=== PATIENT | female | born 1995 | race Caucasian/White ===

== ENCOUNTER 2022-02-16 21:56 | Observation (INO) | payer MEDICAID ==
[~2022-02-16] VITALS: Ht 152.4 cm; Wt 70.3 kg
== END 2022-02-16 23:30 | disposition home or self-care (01) ==
LOC: 8 EST LDRP 21:56
PROVIDERS: ADMIT Obstetrics & Gynecology; ATTEND Obstetrics & Gynecology
DX: O26.893 Other specified pregnancy related conditions, third trimester (principal); R10.9 Unspecified abdominal pain; O62.9 Abnormality of forces of labor, unspecified; O47.1 False labor at or after 37 completed weeks of gestation; Z3A.37 37 weeks gestation of pregnancy
CPT/HCPCS: 59025; G0378; 99281

== ENCOUNTER 2022-03-07 04:00 | Inpatient (IN) | payer MEDICAID ==
[~2022-03-07] VITALS: Ht 154.9 cm; Wt 68.9 kg
[2022-03-07] MEDS ORDERED: METHYLERGONOVINE MALEATE 0.2 MG/ML IM PRN ×2 (05:45→21:45)
[2022-03-07] MEDS ORDERED: CARBOPROST TROMETHAMINE 250 MCG/ML AMPUL IM PRN (05:45)
[2022-03-07] MEDS ORDERED: NALOXONE HCL 0.4 MG/ML 1ML VIAL IM PRN (05:45)
[2022-03-07] MEDS ORDERED: BUTORPHANOL TARTRATE 2 MG/ML VIAL IV PRN (05:45)
[2022-03-07] MEDS ORDERED: LIDOCAINE HCL 1% 20ML VIAL (Pyxis) INJ INFIL SCH (05:45)
[2022-03-07 06:17] LABS: CLARITY URINE CLOUDY (CLEAR); COLOR URINE YELLOW (YELLOW); KETONES URINE NEGATIVE (NEGATIVE); LEUKOCYTE ESTERASE URINE 2+ (NEGATIVE); NITRITE URINE NEGATIVE (NEGATIVE); OCCULT BLOOD URINE 3+ (NEGATIVE); PH URINE 6.5 (4.5-8.0); PROTEIN URINE TRACE (NEGATIVE); SPECIFIC GRAVITY URINE 1.013 (1.005-1.030)
[2022-03-07] MEDS: LACTATED RINGERS 1,000 ML IV SCH ×3 (06:18→11:35)
[2022-03-07 07:00] LABS: *AMPHETAMINES SCREEN URINE NEGATIVE (NEGATIVE); *BARBITURATES SCREEN URINE NEGATIVE (NEGATIVE); *BENZODIAZEPINES SCREEN URINE NEGATIVE (NEGATIVE); *COCAINE SCREEN URINE NEGATIVE (NEGATIVE); CANNABINOID URINE SCREEN NEGATIVE (NEGATIVE); METHADONE URINE SCREEN NEGATIVE (NEGATIVE); OPIATES URINE SCREEN NEGATIVE (NEGATIVE); PHENCYCLIDINE URINE SCREEN NEGATIVE (NEGATIVE)
[2022-03-07 07:09] LABS: BASOPHILS % 0.4 % (0.0-2.0); EOSINOPHILS % 0.5 % (0.0-5.0); HEMOGLOBIN. 12.7 g/dL (12.0-16.0); LYMPHOCYTES % 22.4 % (20.0-50.0); MEAN CORPUSCULAR HEMOGLOBIN 31.6 pg (28.0-32.0); MEAN CORPUSCULAR VOLUME 89.6 fL (81.0-99.0); MEAN PLATELET VOLUME 9.4 fl (7.4-10.4); MONOCYTES % 5.1 % (2.0-8.0); NEUTROPHILS % 71.6 % (40.0-76.0); PLATELET 205 x1000/uL (130-400); RED BLOOD CELL COUNT 4.02 mill/uL (4.2-5.4); RED CELL DISTRIBUTION WIDTH 13.3 % (11.6-14.6)
[2022-03-07 07:20] LABS: INR 0.9; PARTIAL THROMBOPLASTIN TIME 29.5 sec (23.4-31.0); PROTHROMBIN TIME 9.9 sec (9.6-11.0)
[2022-03-07 07:46] LABS: HEPATITIS B SURFACE ANTIGEN NEGATIVE
[2022-03-07] MEDS ORDERED: ROPIVACAINE HCL/PF EPIDURAL 200 ML EP SCH (10:00)
[2022-03-07] MEDS ORDERED: ROPIVACAINE HCL/PF EPIDURAL 200 ML EPI SCH (10:00)
[2022-03-07] MEDS ORDERED: ROPIVACAINE HCL/PF EPIDURAL 200 ML EPI ONE (11:05)
[2022-03-07] MEDS ORDERED: LACTATED RINGERS 1,000 ML IV SCH (12:45)
[2022-03-07] MEDS ORDERED: CITRIC ACID/SODIUM CITRATE SOLN 30ML UDC PO NR (16:00)
[2022-03-07] MEDS: OXYTOCIN 30 UNITS/500ML NS PMX 500 ML IV SCH ×2 (20:34→23:38)
[2022-03-07] MEDS ORDERED: OXYTOCIN 30 UNITS/500ML NS PMX 500 ML IV SCH (21:45)
[2022-03-07] MEDS ORDERED: RHO(D) IMMUNE GLOBULIN 300 MCG/SYR IM PRN (21:45)
[2022-03-07] MEDS ORDERED: LANOLIN OINT 7GM TUBE TOP PRN (21:45)
[2022-03-07] MEDS ORDERED: IBUPROFEN 400MG TABLET PO PRN (21:45)
[2022-03-07 23:25] VITALS: BP 116/70
[2022-03-07 23:55] VITALS: BP 113/68
[2022-03-08 00:30] VITALS: BP 111/73
[2022-03-08] MEDS: IBUPROFEN 800MG TABLET PO PRN ×3 (03:01→22:04)
[2022-03-08 03:10] VITALS: BP 106/60
[2022-03-08 07:29] LABS: BASOPHILS % 0.3 % (0.0-2.0); EOSINOPHILS % 0.5 % (0.0-5.0); HEMATOCRIT. 29.2 % (36.0-48.0); HEMOGLOBIN. 10.1 g/dL (12.0-16.0); LYMPHOCYTES % 21.9 % (20.0-50.0); MEAN CORPUSCULAR HEMOGLOBIN 30.8 pg (28.0-32.0); MEAN CORPUSCULAR VOLUME 89.5 fL (81.0-99.0); MEAN PLATELET VOLUME 9.4 fl (7.4-10.4); NEUTROPHILS % 71.3 % (40.0-76.0); PLATELET 160 x1000/uL (130-400); RED BLOOD CELL COUNT 3.27 mill/uL (4.2-5.4); RED CELL DISTRIBUTION WIDTH 13.2 % (11.6-14.6)
[2022-03-08 08:00] VITALS: BP 93/62
[2022-03-08 16:00] VITALS: BP 96/56
[2022-03-08] MEDS: PRENATAL VIT/FE FUMARATE/FA TABLET PO SCH (16:26)
[2022-03-08 19:30] VITALS: BP 96/52
[2022-03-09 03:45] VITALS: BP 98/59
[2022-03-09 08:00] VITALS: BP 105/70
[2022-03-09] MEDS ORDERED: IBUP-2029 MT (08:05)
[2022-03-09] MEDS: PRENATAL VIT/FE FUMARATE/FA TABLET PO SCH (08:11)
[2022-03-09] MEDS: IBUPROFEN 800MG TABLET PO PRN (08:11)
[2022-03-09 16:00] VITALS: BP 99/62
== END 2022-03-09 19:50 | disposition home or self-care (01) | DRG 560 ==
LOC: OBSVTOIN 04:00 → 8 EST LDRP 04:00 → 8EST 22:31
PROVIDERS: ADMIT Obstetrics & Gynecology; ATTEND Obstetrics & Gynecology
PROC: 10E0XZZ Delivery of Products of Conception, External Approach (ICD-10-PCS; principal; 2022-03-07)
PROC: 3E0R3BZ Introduction of Anesthetic Agent into Spinal Canal, Percutaneous Approach (ICD-10-PCS; 2022-03-07)
PROC: 00HU33Z Insertion of Infusion Device into Spinal Canal, Percutaneous Approach (ICD-10-PCS; 2022-03-07)
DX: O99.344 Other mental disorders complicating childbirth (principal); Z37.0 Single live birth; D62 Acute posthemorrhagic anemia; F32.A Depression, unspecified; Z20.822 Contact with and (suspected) exposure to COVID-19; Z3A.39 39 weeks gestation of pregnancy
CPT/HCPCS: 36415; 71045; 76805; 80305; 81003; 85025; 86592; 86703; 86762; 86850; 86900; 87340; 87426; 99281; J2795; J7120; A4315; J2590

== ENCOUNTER 2024-03-01 21:36 | Emergency (ER) | payer MEDICAID ==
[~2024-03-01] VITALS: Ht 162.6 cm; Wt 82.0 kg
[~2024-03-01 21:36] MED LIST: IBUP-2029 MT
[2024-03-01 21:52] VITALS: O2SAT 100
[2024-03-01 22:57] LABS: BASOPHILS % 0.4 % (0.0-2.0); EOSINOPHILS % 0.1 % (0.0-5.0); HEMOGLOBIN. 14.3 g/dL (12.0-16.0); LYMPHOCYTES % 23.3 % (20.0-50.0); MEAN CORPUSCULAR HEMOGLOBIN 32.2 pg (28.0-32.0); MEAN CORPUSCULAR HGB CONC 34.8 g/dL (31.0-37.0); MEAN CORPUSCULAR VOLUME 92.6 fL (81.0-99.0); MEAN PLATELET VOLUME 8.1 fl (7.4-10.4); MONOCYTES % 6.1 % (2.0-8.0); NEUTROPHILS % 70.1 % (40.0-76.0); PLATELET 236 x1000/uL (130-400); RED BLOOD CELL COUNT 4.43 mill/uL (4.2-5.4); RED CELL DISTRIBUTION WIDTH 12.7 % (11.6-14.6)
[2024-03-01 23:08] LABS: CHLORIDE 108 mEq/L (98-107); POTASSIUM 3.3 mEq/L (3.5-5.1); SODIUM 140 mEq/L (136-145)
[2024-03-01 23:09] LABS: CALCIUM 9.4 mg/dL (8.7-10.4); CARBON DIOXIDE 23 mEq/L (21-32)
[2024-03-01 23:14] LABS: CREATININE 0.8 mg/dL (0.6-1.0); GLUCOSE 110 mg/dL (70-105); UREA NITROGEN BLOOD 11 mg/dL (9-23)
[2024-03-01 23:15] LABS: ETHANOL BLOOD < 10 mg/dL (<10); TROPONIN I HIGH SENSITIVITY < 4 ng/L (3.0-34)
[2024-03-01 23:41] LABS: HCG SCREEN NEGATIVE
[2024-03-02 01:11] VITALS: BP 106/72; PULSE 91; RESP 14; TEMP 37.00296; O2SAT 100
== END 2024-03-02 01:13 | disposition home or self-care (01) ==
LOC: ER 21:36
DX: R55 Syncope and collapse (principal)
CPT/HCPCS: 36415; 71045; 80048; 80320; 84484; 84703; 85025; 93005; 99285; G0480